=== PATIENT | female | born 1990 | race Caucasian/White ===

== ENCOUNTER 2020-10-23 13:13 | Inpatient (IN) | payer MEDICAID, SELFPAY ==
[2020-10-23 13:23] VITALS: BP 134/91; PULSE 113; RESP 16; TEMP 36.8; O2SAT 98; BMI 24.2
--- NOTE | 2020-10-23 13:23 | ECG_ITS ---
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 Measurements Intervals [place] Rate: 103 P: 49 MA: 131 QRS: 52 QRSD: 79 T: 46 QT: 338 QTc: 443 Interpretive Statements SINUS TACHYCARDIA No previous ECG available for comparison Electronically Signed On 10-23-2020 17:05:36 CDT by Sumeet Andino M.D. [id number]
--- NOTE | 2020-10-23 13:28 | ED_ITS ---
HPI - General Adult General: Chief complaint: Psychiatric Symptoms Stated complaint: 96 HR HOLD Time Seen by Provider: 10/23/20 13:23 History of Present Illness: HPI narrative: This patient is a 30-year-old female who presents via [facility] out of [facility]. For a 96-hour hold. Affidavit for the 96-hour hold states that approximately 9:00 this morning Mrs. Milan was given a courtesy ride from a local [facility] park in [place] to the [facility] behavior Police Department the officer in question advised that Ms. Schulz was [place] [facility] [place] with a [place] pole and Bober but had no hook officer also advised that the patient was talking about demons coming to take all of us to hell . While at the [facility] she continually seemed to be talking to people who are not there patient also seemed to have issues forming complete sentences when spoken to, often making sounds which cannot be understood. [facility] records affidavit states that the patient appeared to have some kind of mental issue or under the controlled substances. An affidavit was signed for the [facility] and the nutrition club ambassador signed off for the patient have a 96-hour hold. Patient was brought to this facility for this section. When asking the patient why she is in the emergency department today. Patient states she has an appointment with the doctor to evaluate for seizures. Patient has no memory and does not does not discuss the events of today. Patient states she has a history of drug abuse of taking crank but states nothing recent. Patient appears to be disheveled. Onset (ago): hour(s) Associated symptoms: Deny chest pain, dyspnea, headache(s), nausea, rash, palpitations or vomiting Review of Systems General: Reports: 10 or more systems reviewed and unremarkable except in HPI and below Const: Denies: fever(s), chills, body aches or fatigue Eyes: Denies: change in vision or blurry vision ENMT: Denies: throat pain, hoarseness or mouth pain Card: Denies: chest pain, palpitations, irregular heart rhythm, edema, swelling of feet/ankles or lightheadedness Resp: Denies: dyspnea, productive cough, non-productive cough, wheezing or pain on inspiration GI: Denies: abdominal pain, nausea or vomiting : Denies: flank pain, difficulty voiding, dysuria, urinary frequency, urinary urgency or urinary hesitancy Musc: Denies: neck pain, back pain, extremity pain, extremity swelling, joint pain, joint swelling, joint redness, joint warmth or limited range of motion Skin/Breast: Denies: rash, pruritus, erythema or skin tenderness Neuro: Denies: headache(s), numbness in extremities or weakness in extremities Psych: Reports: visual hallucinations and auditory hallucinations; Denies: anxiety or depression Physical Exam Const: COMMON NORMALS: no acute distress, average body habitus, patient oriented x3, no limitations, healthy appearing, alert and well nourished HENMT: COMMON NORMALS: normocephalic, atraumatic, hearing grossly normal bilaterally, external ears normal, EAC's normal, TM's normal bilaterally, Normal external nose present, Normal nasal mucous membranes and turbinates present, moist oral mucous membranes, oropharynx normal, dentition normal and gingiva normal HEAD & SCALP: normocephalic and atraumatic NOSE: Normal external nose present and Normal nasal mucous membranes and turbinates present EXTERNAL EAR: Yes external ears normal EXTERNAL AUDITORY CANAL: EAC's normal TYMPANIC MEMBRANE: TM's normal bilaterally Neck/C-Spine: COMMON NORMALS: full ROM, no lymphadenopathy, supple, no meningeal signs, no JVD, Thyroid normal and No carotid bruits THYROID: Thyroi d normal Chest: COMMONS NORMALS: normal inspection of the chest, normal palpation of entire chest wall, normal inspection of the breasts and normal palpation of the breasts Breast/axilla inspection: Yes normal inspection of the breasts BREAST/AXILLA PALPATION: Yes normal palpation of the breasts Resp: COMMON NORMALS: normal respiratory effort, No retractions, No use of accessory muscles, clear to auscultation bilaterally and percussion normal AUSCULTATION: clear to auscultation bilaterally PERCUSSION: percussion normal Cardio: COMMON NORMALS: no JVD, regular rate, regular rhythm, S1 normal heart sound present, S2 normal heart sound present, No gallops present (Cardio), No c licks present (Cardio), No murmurs present (Cardio), No rub (Cardio) and Peripheral pulses 2+ throughout RATE: regular rate RHYTHM: regular rhythm HEART SOUNDS: S1 normal heart sound present and S2 normal heart sound present PERIPHERAL PULSES: Peripheral pulses 2+ throughout GI: COMMON NORMALS: Normal to inspection, nondistended, normoactive bowel sounds present, Soft to palpation, non-tender, No hepatosplenomegaly present, no masses and no bruits PALPATION: Yes Soft to palpation and Yes No hepatosplenomegaly present : COMMON NORMALS: Yes no CVA tenderness BLADDER/KIDNEY EXAM: Yes no CVA tenderness Back/Pelvis: COMMON NORMALS: no CVA tenderness, thoracic and lumbar spine normal to inspection, no thoracic nor lumbar tenderness, thoraco-lumbar ROM normal and straight leg raise negative bilaterally Extremity: COMMON NORMALS: normal to inspection, full ROM, capillary refill normal, no joint enlargement, no clubbing, cyanosis or edema, no calf tenderness and no pedal edema Neuro: COMMON NORMALS: patient oriented x3 SENSORIUM/ORIENTATION: Yes alert MENINGEAL SIGNS: Yes no meningeal signs Psych: COMMON NORMALS: cooperative APPEARANCE: Yes unkempt, Yes disheveled and Yes bizarre ATTITUDE: Yes calm THOUGHT PROCESS: Flight of ideas present THOUGHT CONTENT: Yes delusions Course Consultations: Consultation #1: I did discuss at length with Dr. Baer who is accepted the patient for admission to the psychological unit. Time: 14:39 Vital Signs: Vital signs: Vital Signs Temperature 98.2 F 10/23/20 13:23 Pulse Rate 112 H 10/23/20 13:30 Respiratory Rate 18 10/23/20 13:30 Blood Pressure 134/91 10/23/20 13:30 Pulse Oximetry 100 10/23/20 13:30 MDM - General Adult MDM Narrative: Medical decision making narrative: This patient is a 30-year-old female who presents via [facility] out of [facility]. For a 96-hour hold. Affidavit for the 96-hour hold states that approximately 9:00 this morning Mrs. Milan was given a courtesy ride from a local [facility] park in [place] to the [facility] behavior Police Department the officer in question advised that Ms. Schulz was fishing [place] [facility] [place] with a fishing pole and Bober but had no hook officer also advised that the patient was talking about demons coming to take all of us to hell . While at the [facility] she continually seemed to be talking to people who are not there patient also seemed to have issues forming complete sentences when spoken to, often making sounds which cannot be un derstood. [facility] records affidavit states that the patient appeared to have some kind of mental issue or under the controlled substances. An affidavit was signed for the court house and the nutrition club ambassador signed off for the patient have a 96- hour hold. Patient was brought to this facility for this section. When asking the patient why she is in the emergency department today. Patient states she has an appointment with the doctor to evaluate for seizures. Patient has no memory and does not does not discuss the events of today. Patient states she has a history of drug abuse of taking crank but states nothing recent. Patient appears to be disheveled. I did discuss at length with Dr. Baer who is accepted the patient for admission to the psychological unit. Lab Data: Labs: Lab Results 10/23/20 10/23/20 10/23/20 Range/Units 13:41 13:41 13:41 WBC Corrected WBC RBC Hgb Hct MCV MCH MCHC RDW Plt Count MPV Gran % Neut % (Auto) Lymph % (Auto) [place] % (Auto) Eos % (Auto) Baso % (Auto) Neut # (Auto) Lymph # (Auto) [place] # (Auto) Eos # (Auto) Baso # (Auto) Absolute Gran (aut o) Nucleated RBC % (a uto) Nucleated RBCs # HCG, Qual Negative (Negative) Urine Color Yellow (Yellow) Urine Appearance Hazy A (CLEAR) Urine pH 6 (5-7) Ur Specific Gravit y 1.020 (1.005-1.030) Urine Protein Neg (Negative) Urine Glucose (UA) Norm (Normal) Urine Ketones Negative (Negative) Urine Blood Neg (Negative) Urine Nitrate Negative (Negative) Urine Bilirubin Neg (Negative) Urine Urobilinogen Norm (Negative) mg/dL Ur Leukocyte Edwige ase Trace H (Negative) Urine RBC None (0-2) /hpf Urine WBC 0-4 H (0-5) /hpf Ur Squamous Epith Cells 15-25 H (0-5) /hpf Amorphous Sediment Not Reportable Urine Bacteria 1+ H (NONE) /hpf Urine Opiates Scre en Negative (Negative) ng/mL Ur Barbiturates Sc reen Negative (Negative) ng/mL Ur Phencyclidine S crn Negative (Negative) ng/mL Ur Amphetamines Sc reen Positive H (Negative) ng/mL U Benzodiazepines Scrn Negative (Negative) ng/mL Urine Cocaine Scre en Negative (Negative) ng/mL U Marijuana (THC) Screen Positive H (Negative) ng/mL 10/23/20 Range/Units 13:42 WBC Cancelled Corrected WBC Cancelled RBC Cancelled Hgb Cancelled Hct Cancelled MCV Cancelled MCH Cancelled MCHC Cancelled RDW Cancelled Plt Count Cancelled MPV Cancelled Gran % Cancelled Neut % (Auto) Cancelled Lymph % (Auto) Cancelled [place] % (Auto) Cancelled Eos % (Auto) Cancelled Baso % (Auto) Cancelled Neut # (Auto) Cancelled Lymph # (Auto) Cancelled [place] # (Auto) Cancelled Eos # (Auto) Cancelled Baso # (Auto) Cancelled Absolute Gran (aut o) Cancelled Nucleated RBC % (a uto) Cancelled Nucleated RBCs # Cancelled HCG, Qual (Negative) Urine Color (Yellow) Urine Appearance (CLEAR) Urine pH (5-7) Ur Specific Gravit y (1.005-1.030) Urine Protein (Negative) Urine Glucose (UA) (Normal) Urine Ketones (Negative) Urine Blood (Negative) Urine Nitrate (Negative) Urine Bilirubin (Negative) Urine Urobilinogen (Negative) mg/dL Ur Leukocyte Edwige ase (Negative) Urine RBC (0-2) /hpf Urine WBC (0-5) /hpf Ur Squamous Epith Cells (0-5) /hpf Amorphous Sediment Urine Bacteria (NONE) /hpf Urine Opiates Scre en (Negative) ng/mL Ur Barbiturates Sc reen (Negative) ng/mL Ur Phencyclidine S crn (Negative) ng/mL Ur Amphetamines Sc reen (Negative) ng/mL U Benzodiazepines Scrn (Negative) ng/mL Urine Cocaine Scre en (Negative) ng/mL U Marijuana (THC) Screen (Negative) ng/mL EKG Data^: EKG 1: Attestation: I personally reviewed and interpreted this EKG as follows: EKG interpretation date: 10/23/20 EKG interpretation time: 14:13 Prior EKG tracings: not available for review Interpretation: Sinus tachycardia heart rate 103 nonspecific EKG Discharge Plan Discharge Patient Disposition: Admitted As Inpatient Clinical Impression: Acute psychosis, Drug-induced psychotic disorder, Methamphetamine use Condition: Stable Coding Level of Care Code ED Embalmer Apprentice for Chg Fwd Exam Comprehensive
[2020-10-23 13:30] VITALS: BP 134/91; PULSE 112; RESP 18; O2SAT 100
[2020-10-23 14:04] LABS: HCG Qualitative Urine. Negative (Negative)
[2020-10-23 14:05] LABS: Bilirubin Urine Neg (Negative); Blood Urine Neg (Negative); Glucose Urine UA Norm (Normal); Ketones Urine Negative (Negative); Nitrate Urine Negative (Negative); Protein Urine Neg (Negative); Urine Appearance Hazy (CLEAR); Urine Color Yellow (Yellow); Urobilinogen Urine Norm (Negative); pH Urine 6 (5-7)
[2020-10-23 14:06] LABS: Add Urine Microscopic? YES; Leukocyte Esterase Urine Trace (Negative)
[2020-10-23 14:10] LABS: Amphetamines Screen Urine Positive (Negative); Barbiturates Screen Urine Negative (Negative); Benzodiazepines Screen Urine Negative (Negative); Cocaine Screen Urine Negative (Negative); Opiate Screen Urine Negative (Negative); PCP Screen Urine Negative (Negative); THC Screen Urine Positive (Negative)
[2020-10-23 14:13] LABS: Add Urine Culture? No; Bacteria Urine 1+ /hpf; Squamous Epithelial Cell Urine 15-25 /hpf (0-5); WBC Urine 0-4 /hpf (0-5)
--- NOTE | 2020-10-23 14:40 | PC.NURSE ---
Lab at bedside to redraw blood
[2020-10-23 14:52] LABS: Basophils # 0.1 10^3/uL (0.0-0.1); Basophils % 0.6 %; Eosinophils % 0.4 %; Hematocrit 39.8 % (37.0-47.0); Hemoglobin 13.4 g/dL (11.5-15.3); Lymphocytes # 2.6 10^3/uL (0.8-4.8); Lymphocytes % 31.2 %; Mean Corpuscular HGB Conc 33.7 g/dL (30.0-36.0); Mean Corpuscular Hemoglobin 29.9 pg (28.0-34.0); Mean Corpuscular Volume 88.8 fL (81-99); Mean Platelet Volume 10.8 fL (7.4-10.4); Monocytes # 1.1 10^3/uL (0.2-0.9); Monocytes % 12.8 %; Neutrophils # 4.58 10^3/uL (1.8-7.7); Neutrophils % 54.8 %; Nucleated Red Blood Cells % 0 %; Platelet Count 390 10^3/cmm (130-400); Red Blood Count 4.48 10^6/uL (4.1-5.3); Red Cell Distribution Width 13.9 % (12.1-15.1); White Blood Count 8.4 10^3/uL (4.0-10.0)
[2020-10-23 15:17] LABS: Alanine Aminotransferase 24 U/L (0-33); Albumin Level 4.8 g/dL (3.5-5.2); Alkaline Phosphatase 84 IU/L (35-105); Anion Gap 16.9 (5-19); Aspartate Amino Transferase 79 U/L (0-32); Blood Urea Nitrogen 13 mg/dL (6-20); Calcium 9.1 mg/dL (8.5-10.5); Carbon Dioxide 26 mmol/L (22-29); Chloride 99 mmol/L (98-107); Globulin 3.2 g/dL (1.3-4.6); Glomerular Filtration Rate 117.4 mL/min (90-130); Glucose 100 mg/dL (65-115); Osmolality Calculated 286 mOsm/kg (285-295); Potassium 3.9 mmol/L (3.5-5.1); Sodium 138 mmol/L (136-145); Total Bilirubin 0.3 mg/dL (0.15-1.2)
[2020-10-23 15:20] LABS: Acetaminophen < 5.0 ug/mL (10-30); Alcohol Level < 10 mg/dL (0-10); Salicylate < 0.3 mg/dL (3-10)
[2020-10-23 15:33] VITALS: BP 134/90; PULSE 113; RESP 18; O2SAT 100
[2020-10-23 16:07] VITALS: RESP 18
[2020-10-23] MEDS: nicotine 2 mg Gum BUCCAL ×2 (17:16→21:25)
[2020-10-23 20:26] VITALS: BP 122/67; PULSE 88; RESP 18; TEMP 36.4; O2SAT 98
[2020-10-23] MEDS: trazodone 50 mg Tablet PO (21:21)
[2020-10-23] MEDS: OLANZapine 5 mg ODT PO (21:21)
--- NOTE | 2020-10-23 21:34 | PC.NURSE ---
PRN Zyprex Patient talking to self, and tearing up tissues PRN trazodone Patient requesting something to help her sleep.
--- NOTE | 2020-10-23 21:36 | PC.NURSE ---
PRN Nicotine gum Patient requested to ease her cravings.
--- NOTE | 2020-10-23 21:43 | PC.NURSE ---
PM Assessment Heart/Lung sounds WNL, Pt denies SI/HI, Denies pain, Denies AH/VH, However, nurse witnessed pt picking at blanket, talking, giggling, hopping up and down, in her room interacting with unseen stimuli. Pt is cooperative with staff, gave nurse several alias' to use, she could not accurately tell nurse her on assessment. Pt interacts well with other patients. She appears anxious but denies this to staff. Med nurse notified of pt actions
[2020-10-24 06:00] VITALS: BP 88/60; PULSE 68; RESP 18; TEMP 36.9; O2SAT 96
[2020-10-24] MEDS: OLANZapine 5 mg TABLET PO ×2 (09:43→18:40)
--- NOTE | 2020-10-24 09:45 | PM.NHP ---
Providers/Chief Complaint Admitting Physician: Sam Baer DO Chief Complaint: 96 HR HOLD HPI NPU History of Present Illness Janeen Milan is a 30 year old female with an unclear past psychiatric history presented to the emergency department by police after being found acting bizarrely on the road side with a fishing pole. Patient has a history of substance abuse with crank with reported last use a couple weeks ago but appears to have some sort of motor and vocal tic which is unclear if it is related to substance abuse versus baseline. Patient is somewhat confused but states that she is from [place] away near [place] and states that she has 2 previous psychiatric admissions for unclear reasons and states that she was taking Depakote, doxepin and risperidone which she reports was prescribed by her primary care but had stopped taking these medications several days ago. Patient denies any past or recent manic or hypomanic episodes. She denies any past or recent visual hallucinations but reports having intermittent auditory hallucinations if it is really quiet and I am able to focus on my thoughts. She denies any paranoia and denies any other delusions. Patient states that in the past she has been diagnosed as being depressed but denies any current depressive symptoms. She does report intermittent anxiety symptoms. Patient states that she lives on her own near [place] and states that she has 5 children but only has 4 them but then subsequently states that the children live with their fathers. Review of Systems General: Reports: 10 or more systems reviewed and unremarkable except in HPI and below Meds NPU Home Medications Medication Instructions Recorded Confirmed Last Taken Type divalproex 500 mg PO DAILY 10/23/20 10/23/20 Unknown History doxepin 50 mg PO DAILY 10/23/20 10/23/20 Unknown History risperidone 2 mg PO DAILY 10/23/20 10/23/20 Unknown History Allergies Allergy/AdvReac Type Severity Reaction Status Date / Time No Known Allergies Allergy Verified 10/23/20 13:29 [facility] NPU Other Psychiatric History: Other Psychiatric History: Per above, patient has unclear past psychiatric history, denies any outpatient treatment by psychiatrist and states that her medication was prescribed by her primary care Reports 2 previous psychiatric admissions for unclear reasons Denies any history of suicide attempt or self harm behavior Mental Status Exam MSE Comments: Sitting in the day room, occasional involuntary motor tics with her head and arms as well as vocal tics, poor dentition, poor and rough complexion, disheveled hair, polite and cooperative, good eye contact Psychomotor activity per above, neither increased or decreased, no agitation Speech is fair articulation, spontaneous, normal rate and volume, not pressured I feel okay, full range of affect, not labile Alert and oriented to person, place, time, appears to be somewhat confused about situation and circumstances leading to hospitalization Intellectual functioning is unclear, appears to be below average to average at best based on vocabulary, interview Memory and concentration appear to be fair per interview Thought process, linear, no flight of ideas, no looseness of associations Thought content, no delusions, does not appear to be attending to any internal stimuli, no suicidal or homicidal ideation Insight and judgment appear to be fair to intact Vitals/I&O/Wt Last Vital Signs Temp 98.5 F 10/24/20 06:00 Pulse 68 10/24/20 06:00 Resp 18 10/24/20 06:00 BP 88/60 10/24/20 06:00 Pulse Ox 96 10/24/20 06:00 Weight last 48 hrs Weight 68.039 kg Data NPU : 10/23/20 14:41 10/23/20 14:41 A&P Assessment and plan (1) Acute psychosis: Status: Acute (2) Drug-induced psychotic disorder: Status: Acute (3) Methamphetamine use: Status: Acute Additional A&P Information Patient with unclear past psychiatric history, picked up by police for bizarre behavior, has a history of substance abuse with unclear motor and vocal tics, denies any current mood symptoms, denies any suicidal ideation. Patient would benefit from medication stabilization and coordination for post discharge mental health care follow-up. INVOLUNTARY ADMIT to inpatient psychiatry START olanzapine 5 mg by mouth twice daily targeting psychotic symptoms Encouraged patient to participate in unit activities to include group sessions, unit milieu Coordinate with social security specialist for post discharge mental health care follow-up Attestations NPU Medical Necessity Statement*: Psychiatric hospitalization is indicated for medication stabilization, coordination for safe discharge Anticipate hospital stay to exceed 2 midnights Time Spent in Patient Care: Greater than 35 minutes (>than 50% of time spent in counselling and/or direct pt care on unit). Coding Level of Care Code Acute Exploration Driller for Stephen Smith Diagnoses Acute psychosis F23 Drug-induced psychotic disorder F19.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
[2020-10-24] MEDS: hyDROXYzine 25 mg Capsule 50 MG PO (11:00)
--- NOTE | 2020-10-24 11:02 | PC.NURSE ---
PRN 1100 Administered Vistaril 50 mg for pt c/o anxiety, will follow up with pt.
[2020-10-24 14:00] VITALS: BP 91/58; PULSE 65; RESP 18; TEMP 36.8; O2SAT 99
[2020-10-24 21:28] VITALS: BP 97/54; PULSE 74; RESP 16; TEMP 37.1; O2SAT 97
[2020-10-25 06:00] VITALS: BP 99/58; PULSE 64; RESP 16; TEMP 37; O2SAT 98
[2020-10-25] MEDS: OLANZapine 5 mg TABLET PO ×2 (08:58→17:18)
--- NOTE | 2020-10-25 13:07 | P.PN_ITS ---
Subjective NPU Subjective: Interval history: Patient currently denying any auditory or visual destinations Denies any mood symptoms, denies any depressed symptoms, denies any suicidal ideations Patient reports some confusion about circumstances leading to her hospitalization but states that she remembers being picked up by the police Reports being compliant with her medication, denies any medication side effects Per staff report, no interval behavioral disturbances Mental Status Exam MSE Comments: Lying in bed, no noticeable tics today, appropriately dressed in hospital scrubs but tired appearing and disheveled, fair eye contact Psychomotor activity is somewhat decreased, no agitation Speech is fair articulation, spontaneous, normal rate and volume, not pressured I feel tired, full range of affect, not labile Alert and oriented to person, place, time, appears to be somewhat confused about situation and circumstances leading to hospitalization Memory and concentration appear to be fair per interview Thought process, linear, no flight of ideas, no looseness of associations Thought content, no delusions, does not appear to be attending to any internal stimuli, no suicidal or homicidal ideation Insight and judgment appear to be fair to intact Vitals/I&O/Wt Last Vital Signs Temp 98.6 F 10/25/20 06:00 Pulse 64 10/25/20 06:00 Resp 16 10/25/20 06:00 BP 99/58 10/25/20 06:00 Pulse Ox 98 10/25/20 06:00 Weight last 48 hrs Weight 68.039 kg Data NPU : 10/23/20 14:41 10/23/20 14:41 A&P Assessment and plan (1) Acute psychosis: Status: Acute (2) Methamphetamine use: Status: Acute Additional A&P Information No noticeable motor tics today, reports feeling confused CONTINUE current medication, continue to monitor Attestations NPU Medical Necessity Statement*: Continues to require psychiatric hospitalization for medication stabilization Coding Level of Care Code Acute Africana Studies Professor for Stephen Smith Diagnoses Acute psychosis F23 Methamphetamine use F15.10
[2020-10-25 14:00] VITALS: BP 89/61; PULSE 84; RESP 17; TEMP 36.7; O2SAT 98
[2020-10-25 21:33] VITALS: RESP 17
--- NOTE | 2020-10-25 21:33 | PC.NURSE ---
Patient refused vital signs. Respirations were taken.
[2020-10-26 06:00] VITALS: BP 90/75; PULSE 111; RESP 17; TEMP 36.3; O2SAT 93
[2020-10-26] MEDS: OLANZapine 5 mg TABLET PO (08:49)
--- NOTE | 2020-10-26 12:00 | P.PN_ITS ---
Subjective NPU Subjective: Interval history: Patient is lying in bed, reports that she feels groggy, denies any interval mood symptoms, denies any depressed symptoms, denies any suicidal ideation Denies any auditory or visual destinations, denies any delusions Patient reports that she feels like she is thinking more clearly although is somewhat hazy about events leading to her hospitalization She reports that her appetite is good, reports sleeping well Per staff report, no interval behavioral disturbances Mental Status Exam MSE Comments: Appropriately dressed in hospital scrubs, lying in bed, tired appearing and disheveled, fair eye contact Psychomotor activity is somewhat decreased, no agitation Speech is fair articulation, spontaneous, normal rate and volume, not pressured I feel groggy, full range of affect, not labile Alert and oriented to person, place, time, appears to be somewhat confused about situation and circumstances leading to hospitalization Memory and concentration appear to be fair per interview Thought process, linear, no flight of ideas, no looseness of associations Thought content, no delusions, does not appear to be attending to any internal stimuli, no suicidal or homicidal ideation Insight and judgment appear to be fair to intact Vitals/I&O/Wt Last Vital Signs Temp 97.3 F L 10/26/20 06:00 Pulse 111 H 10/26/20 06:00 Resp 17 10/26/20 06:00 BP 90/75 10/26/20 06:00 Pulse Ox 93 10/26/20 06:00 Data NPU : 10/23/20 14:41 10/23/20 14:41 A&P Assessment and plan (1) Acute psychosis: Status: Acute (2) Methamphetamine use: Status: Acute Additional A&P Information Patient reports feeling like her thoughts are more organized, denies any interval auditory or visual destinations, no stated delusions CHANGE olanzapine to olanzapine 10 mg at bedtime targeting mood, psychotic symptoms Attestations NPU Medical Necessity Statement*: Continues to require psychiatric hospitalization for medication stabilization Coding Level of Care Code Acute Permit Coordinator for Stephen Smith Diagnoses Acute psychosis F23 Methamphetamine use F15.10
[2020-10-26 14:00] VITALS: BP 100/66; PULSE 79; RESP 16; TEMP 36.2; O2SAT 97
[2020-10-26] MEDS: hyDROXYzine 25 mg Capsule 50 MG PO (15:45)
[2020-10-26] MEDS: OLANZapine 5 mg TABLET 10 MG PO (21:57)
[2020-10-26 22:00] VITALS: BP 94/61; PULSE 71; RESP 15; TEMP 36.3; O2SAT 95
[2020-10-27 06:00] VITALS: BP 98/64; PULSE 70; RESP 15; TEMP 36.6; O2SAT 95
--- NOTE | 2020-10-27 13:06 | P.PN_ITS ---
Subjective NPU Subjective: Interval history: Denies any interval auditory or visual hallucinations, no stated delusions Patient reports that she is thinking more clearly but continues to struggle with some of the events leading to her hospitalization although recalls with some prompting. Denies any interval depressive symptoms, no suicidal ideation Patient reports that her sleep has improved, feels somewhat groggy in the morning Mental Status Exam MSE Comments: Lying in bed, tired appearing and disheveled, good eye contact Psychomotor activity is somewhat decreased, no agitation Speech is fair articulation, spontaneous, normal rate and volume, not pressured I feel a little better, full range of affect, not labile Alert and oriented to person, place, time, appears to be somewhat confused about situation and circumstances leading to hospitalization Memory and concentration appear to be fair per interview Thought process, linear, no flight of ideas, no looseness of associations Thought content, no delusions, does not appear to be attending to any internal stimuli, no suicidal or homicidal ideation Insight and judgment appear to be fair to intact Vitals/I&O/Wt Last Vital Signs Temp 97.8 F 10/27/20 06:00 Pulse 70 10/27/20 06:00 Resp 15 10/27/20 06:00 BP 98/64 10/27/20 06:00 Pulse Ox 95 10/27/20 06:00 Data NPU : 10/23/20 14:41 10/23/20 14:41 A&P Assessment and plan (1) Acute psychosis: Status: Acute (2) Drug-induced psychotic disorder: Status: Acute (3) Methamphetamine use: Status: Acute Additional A&P Information Appears to be more organized, thinking more clearly, denies any interval suicidal ideations, denying any hallucinations DECREASE to olanzapine 5 mg at bedtime Continue to monitor Attestations NPU Medical Necessity Statement*: Continues to require psychiatric hospitalization for medication stabilization Coding Level of Care Code Acute Lockstitch Zipper Setter for Stephen Smith Diagnoses Acute psychosis F23 Drug-induced psychotic disorder F19.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
[2020-10-27 14:00] VITALS: BP 98/64; PULSE 70; RESP 15; TEMP 36.6; O2SAT 95
[2020-10-27] MEDS: hyDROXYzine 25 mg Capsule 50 MG PO (15:56)
[2020-10-27 15:59] VITALS: BP 103/69; PULSE 97; RESP 18; TEMP 36.2; O2SAT 94
[2020-10-27] MEDS: nicotine 2 mg Gum BUCCAL (16:53)
[2020-10-27 19:46] VITALS: BP 94/59; PULSE 70; RESP 16; TEMP 36.7; O2SAT 97
[2020-10-27] MEDS: OLANZapine 5 mg TABLET PO (21:19)
[2020-10-28 06:00] VITALS: BP 96/52; PULSE 76; RESP 17; TEMP 36.3; O2SAT 97
--- NOTE | 2020-10-28 12:15 | P.PN_ITS ---
Subjective NPU Subjective: Interval history: Continues to deny any interval psychotic symptoms, no auditory visual loose Nations, no delusions Reports intermittent mood symptoms but denies any sustained depressive symptoms, no suicidal ideation Continues to report some grogginess but states improved Reports that her sleep has been improved States that she has been compliant with medication and denies any medication side effects Mental Status Exam MSE Comments: Lying in bed, eventually sits up for interview, disheveled, unkempt but cooperative with interview and good eye contact Psychomotor activity is somewhat decreased, no agitation Speech is fair articulation, spontaneous, normal rate and volume, not pressured I feel okay, full range of affect, not labile Alert and oriented to person, place, time, appears to be somewhat confused about situation and circumstances leading to hospitalization Memory and concentration appear to be fair per interview Thought process, linear, no flight of ideas, no looseness of associations Thought content, no delusions, does not appear to be attending to any internal stimuli, no suicidal or homicidal ideation Insight and judgment appear to be fair to intact Vitals/I&O/Wt Last Vital Signs Temp 97.4 F L 10/28/20 06:00 Pulse 76 10/28/20 06:00 Resp 17 10/28/20 06:00 BP 96/52 10/28/20 06:00 Pulse Ox 97 10/28/20 06:00 Weight last 48 hrs Weight 68.039 kg Data NPU : 10/23/20 14:41 10/23/20 14:41 A&P Assessment and plan (1) Acute psychosis: Status: Acute (2) Drug-induced psychotic disorder: Status: Acute (3) Methamphetamine use: Status: Acute Additional A&P Information Continues to report improvement, improving psychotic symptoms Continue current medication, continue to monitor Attestations NPU Medical Necessity Statement*: Continues to require psychiatric hospitalization for medication stabilization, coordination for safe discharge Coding Level of Care Code Acute Maintenance And Custodian Supervisor for Stephen Smith Diagnoses Acute psychosis F23 Drug-induced psychotic disorder F19.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
[2020-10-28] MEDS: nicotine 2 mg Gum BUCCAL ×2 (13:29→16:12)
[2020-10-28 13:46] VITALS: BP 108/61; PULSE 80; RESP 18; TEMP 36.4; O2SAT 96
[2020-10-28] MEDS: hyDROXYzine 25 mg Capsule 50 MG PO (14:09)
--- NOTE | 2020-10-28 14:09 | PC.NURSE ---
Addendum entered by Marlene Piper RN 10/28/20 14:26: Patient currently resting in bed. Original Note: Patient requested something for anxiety. Vistaril given
[2020-10-28] MEDS: trazodone 50 mg Tablet PO (20:33)
[2020-10-28] MEDS: OLANZapine 5 mg TABLET PO (20:33)
[2020-10-28 20:56] VITALS: BP 99/64; PULSE 22; RESP 22; TEMP 37.4; O2SAT 98
--- NOTE | 2020-10-28 22:55 | PC.NURSE ---
at 2038, pt requested a sleeping pill with HS meds, trazodone 50mg po given. pt resting quietly with both eyes closed at this time.
[2020-10-29 06:00] VITALS: BP 99/60; PULSE 77; RESP 20; TEMP 36.8; O2SAT 97
[2020-10-29 08:56] VITALS: BMI 24.2
--- NOTE | 2020-10-29 09:07 | PC.NURSE ---
DISCHARGE CONTACT INFO MARGARET @ [phone] HE SAID HE WILL PICK PT UP IF DISCHARGED
[2020-10-29] MEDS: nicotine 2 mg Gum BUCCAL (09:22)
--- NOTE | 2020-10-29 11:52 | P.DS_ITS ---
Diagnoses at Discharge Discharge Diagnosis (1) Acute psychosis: Status: Acute (2) Drug-induced psychotic disorder: Status: Acute (3) Methamphetamine use: Status: Acute Reason for Visit Reason for Visit: 96 HR HOLD Hospital Course Hospital Course 30 year old female with an unclear past psychiatric history presented to the emergency department by police after being found acting bizarrely on the road side with a fishing pole. Patient has a history of substance abuse with crank with reported last use a couple weeks ago but appears to have some sort of motor and vocal tic which is unclear if it is related to substance abuse versus baseline. Patient continued to have some jerking movements related to her methamphetamine intoxication which rapidly resolved over the first 24 hours with no return. Patient was reporting some dysphoria which also resolved. Patient was started on olanzapine which was titrated up to 5 mg twice daily and subsequently tapered back down to 5 mg at bedtime which the patient tolerated well with no reports of any medication side effects. Patient became more interactive on the unit and participated in unit milieu with no reports of any behavioral disturbances. Patient was not suicidal and did not demonstrate any bizarre behavior or endorse any psychotic symptoms at the time of discharge and did not appear to pose an imminent threat of harm to self or others. Low to moderate risk of harm to self or others given no current psychotic sympt oms although patient's risk may be elevated if she continues to abuse substances or alcohol leading to impulsive, unexpected behavior. Risk mitigation included psychiatric hospitalization for medication stabilization and observation for any persisting bizarre behavior, recommendation to abstain from the use of any substances and alcohol as well as the need for compliance with her medication, medication management and substance counseling/treatment follow-up. Patient was able to communicate her understanding of the need to abstain from use of substances and alcohol as well as the need for compliance with post discharge substance counseling/treatment in order to further mitigate her risk of harm to self and others. Mental Status Exam MSE Comments: Standing at the nurses station, calm, cooperative, interactive, polite, good eye contact Psychomotor activity is somewhat decreased, no agitation Speech is fair articulation, spontaneous, normal rate and volume, not pressured I feel good, full range of affect, smiles appropriately at times, not labile Alert and oriented to person, place, time, situation Memory and concentration appear to be fair per interview Thought process, linear, no flight of ideas, no looseness of associations Thought content, no delusions, does not appear to be attending to any internal stimuli, no suicidal or homicidal ideation Insight and judgment appear to be fair to intact Discharge Data Vitals: Last Vital Signs Temp 98.2 F 10/29/20 06:00 Pulse 77 10/29/20 06:00 Resp 20 H 10/29/20 06:00 BP 99/60 10/29/20 06:00 Pulse Ox 97 10/29/20 06:00 Discharge Plan Discharge Patient Disposition: Home Condition: Stable Prescriptions: New olanzapine 5 mg Tablet 5 mg PO BEDTIME Qty: 30 RF: 0 Discontinued doxepin 50 mg capsule 50 mg PO DAILY RF: 0 divalproex 500 mg tablet,delayed release (DR/EC) 500 mg PO DAILY RF: 0 risperidone 2 mg tablet 2 mg PO DAILY RF: 0 Discharge Orders: Discharge Order (Routine); Ordered 10/29/20 Ordered By: Sam Baer Referrals: [facility] [Other] (Once you Discharge from the hospital please call [phone] and they will set you up an appointment to be seen at [facility] ([place]) [Other] (Please Call [facility] next week to see if they have an open female bed available. If they do, you will need to use Medicaid Transport to get there. Here is the number for Medicaid transport . Please have the address and phone number to [facility] when you call as well as your current address. Please call transport at the earliest convienence as ther may need to be a two to three day wait for transport. Please inform [facility] of this. 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
[2020-10-29 11:59] VITALS: BP 99/60; PULSE 77; RESP 20; TEMP 36.8; O2SAT 97
== END 2020-10-29 12:58 | disposition home or self-care (01) | DRG 897 ==
LOC: ER 14:27 → NP 15:23
PROVIDERS: Admitting Provider Psychiatry & Neurology Psychiatry; Emergency Provider Emergency Medicine; Visit Provider Psychiatry & Neurology Psychiatry
DX: F15.959 Other stimulant use, unspecified with stimulant-induced psychotic disorder, unspecified (principal)
CPT/HCPCS: 80053; 80306; 80307; 81001; 81025; 85025; 93005; 99285

== ENCOUNTER 2020-12-07 11:12 | Inpatient (IN) | payer MEDICAID, SELFPAY ==
[2020-12-07 11:22] VITALS: BP 92/62; PULSE 71; RESP 16; O2SAT 97; BMI 30.7
--- NOTE | 2020-12-07 11:30 | W.ED.PSYCH ---
HPI - Psych General: Chief Complaint: Psychiatric Symptoms Stated Complaint: MHE Time Seen by Provider: 12/07/20 11:20 Source: patient and police Mode of arrival: ambulatory Limitations: altered mental status History of Present Illness: HPI Narrative: This is a 30-year-old female who was brought in by [facility]'s office and was brought in because that she was found wandering on the street and into traffic. When she was questioned by law enforcement she stated that she was born in the [birth year]99s and that this is somewhere in the 1800s and the president is Mihai Aguilera. When they looked at her identification she is about 20 miles away from home. Because of these and her mental status she was brought to the emergency department to be evaluated. When I spoke to her she was not making any sense, she was unable to answer any of my questions appropriately as her answers were no related to my questions. She is quite unkempt. MD complaint: altered mental status Treatments prior to arrival: placed on mental health hold Review of Systems General: Reports: ROS unobtainable due to mental status ON LICENSE OF [facility] ED Female Reproductive History: Date of last menstrual period: 09/15/20 Physical Exam Const: COMMON NORMALS: no acute distress, average body habitus, no limitations, alert and well nourished GENERAL APPEARANCE: disheveled HENMT: COMMON NORMALS: normocephalic, atraumatic and moist oral mucous membranes HEAD & SCALP: normocephalic and atraumatic Neck/C-Spine: COMMON NORMALS: no meningeal signs and no JVD Resp: COMMON NORMALS: normal respiratory effort, No retractions, No use of accessory muscles, clear to auscultation bilaterally and percussion normal AUSCULTATION: clear to auscultation bilaterally PERCUSSION: percussion normal Cardio: COMMON NORMALS: no JVD, regular rate, regular rhythm, S1 normal heart sound present, S2 normal heart sound present, No gallops present (Cardio), No clicks present (Cardio), No murmurs present (Cardio), No rub (Cardio) and Peripheral pulses 2+ throughout RATE: regular rate RHYTHM: regular rhythm HEART SOUNDS: S1 normal heart sound present and S2 normal heart sound present PERIPHERAL PULSES: Peripheral pulses 2+ throughout GI: COMMON NORMALS: Normal to inspection, nondistended, normoactive bowel sounds present, Soft to palpation, non-tender, No hepatosplenomegaly present, no masses and no bruits PALPATION: Yes Soft to palpation and Yes No hepatosplenomegaly present Extremity: COMMON NORMALS: normal to inspection, full ROM, capillary refill normal, no calf tenderness and no pedal edema Neuro: SENSORIUM/ORIENTATION: Yes alert MENINGEAL SIGNS: Yes no meningeal signs Psych: APPEARANCE: Yes unkempt ATTITUDE: Yes bizarre ACTIVITY/MOTOR BEHAVIOR: Yes disorganized behavior SPEECH: Yes incoherent MOOD & AFFECT: Yes elevated mood Skin: COMMON NORMALS: no rashes or lesions noted, no wounds, turgor normal, no jaundice, no petechiae and no mottling GENERAL SKIN EXAM: no rashes or lesions noted and turgor normal Course Consultations: Consultation #1: Discussed the patient with Dr. Stephens, psychiatrist and he kindly accepted the patient to his service. Time: 13:50 Vital Signs: Vital signs: Vital Signs Pulse Rate 69 12/07/20 14:00 Respiratory Rate 16 12/07/20 20:13 Blood Pressure 136/69 12/07/20 14:00 Pulse Oximetry 100 12/07/20 14:00 MDM - Psych MDM Narrative: Medical decision making narrative: 30-year-old female patient was brought in by law enforcement officers due to bizarre behavior. On evaluation by me the patient is clearly having an acute psychotic episode and drug screen was positive for methamphetamines and marijuana. She was placed on a 96-hour hold and admitted to the neuropsychiatric unit after she was medically cleared for further evaluation and management. Medical Records: Attestation: I reviewed the patient's medical records. Lab Data: Attestation: I reviewed the patient's lab results. Labs: Lab Results 12/07/20 12/07/20 12/07/20 Range/Units 12:10 12:10 12:40 WBC 6.0 (4.0-10.0) 10^3/ uL RBC 4.47 (4.1-5.3) 10^6/u L Hgb 13.2 (11.5-15.3) g/dL Hct 40.6 (37.0-47.0) % MCV 90.8 (81-99) fL MCH 29.5 (28.0-34.0) pg MCHC 32.5 (30.0-36.0) g/dL RDW 13.0 (12.1-15.1) % Plt Count 288 (130-400) 10^3/c mm MPV 11.2 H (7.4-10.4) fL Neut % (Auto) 43.1 % Lymph % (Auto) 38.8 % [place] % (Auto) 12.6 % Eos % (Auto) 4.3 % Baso % (Auto) 1.0 % Neut # (Auto) 2.59 (1.8-7.7) 10^3/u L Lymph # (Auto) 2.3 (0.8-4.8) 10^3/u L [place] # (Auto) 0.8 (0.2-0.9) 10^3/u L Eos # (Auto) 0.3 (0.0-0.8) 10^3/u L Baso # (Auto) 0.1 (0.0-0.1) 10^3/u L Nucleated RBC % (a uto) 0 % Nucleated RBCs # 0.0 /100WBC Sodium (136-145) mmol/L Potassium (3.5-5.1) mmol/L Chloride (98-107) mmol/L Carbon Dioxide (22-29) mmol/L Anion Gap (5-19) BUN (6-20) mg/dL Creatinine (0.5-0.9) mg/dL GFR Calculation (90-130) mL/min Glucose (65-115) mg/dL Calculated Osmolal ity (285-295) mOsm/k g Calcium (8.5-10.5) mg/dL Total Bilirubin (0.15-1.2) mg/dL AST (0-32) U/L ALT (0-33) U/L Alkaline Phosphata se (35-105) IU/L Total Protein (6.6-8.7) g/dL Albumin (3.5-5.2) g/dL Globulin (1.3-4.6) g/dL HCG, Qual (Negative) Urine Color Yellow (Yellow) Urine Appearance Hazy A (CLEAR) Urine pH 6 (5-7) Ur Specific Gravit y 1.015 (1.005-1.030) Urine Protein Neg (Negative) Urine Glucose (UA) Norm (Normal) Urine Ketones Negative (Negative) Urine Blood Neg (Negative) Urine Nitrate Negative (Negative) Urine Bilirubin 1+ H (Negative) Urine Urobilinogen 1 H (Negative) mg/dL Ur Leukocyte Edwige ase Negative (Negative) Urine RBC None (0-2) /hpf Urine WBC None (0-5) /hpf Ur Squamous Epith Cells 15-25 H (0-5) /hpf Calcium Oxalate Cr ystal 0-4 H /hpf Amorphous Sediment Not Reportable Urine Bacteria 1+ H (NONE) /hpf Salicylates (3-10) mg/dL Urine Opiates Scre en Negative (Negative) ng/mL Acetaminophen (10-30) ug/mL Ur Barbiturates Sc reen Negative (Negative) ng/mL Ur Phencyclidine S crn Negative (Negative) ng/mL Ur Amphetamines Sc reen Positive H (Negative) ng/mL U Benzodiazepines Scrn Negative (Negative) ng/mL Urine Cocaine Scre en Negative (Negative) ng/mL U Marijuana (THC) Screen Positive H (Negative) ng/mL Ethyl Alcohol (0-10) mg/dL 12/07/20 12/07/20 Range/Units 12:40 12:40 WBC (4.0-10.0) 10^3/ uL RBC (4.1-5.3) 10^6/u L Hgb (11.5-15.3) g/dL Hct (37.0-47.0) % MCV (81-99) fL MCH (28.0-34.0) pg MCHC (30.0-36.0) g/dL RDW (12.1-15.1) % Plt Count (130-400) 10^3/c mm MPV (7.4-10.4) fL Neut % (Auto) % Lymph % (Auto) % [place] % (Auto) % Eos % (Auto) % Baso % (Auto) % Neut # (Auto) (1.8-7.7) 10^3/u L Lymph # (Auto) (0.8-4.8) 10^3/u L [place] # (Auto) (0.2-0.9) 10^3/u L Eos # (Auto) (0.0-0.8) 10^3/u L Baso # (Auto) (0.0-0.1) 10^3/u L Nucleated RBC % (a uto) % Nucleated RBCs # /100WBC Sodium 139 (136-145) mmol/L Potassium 4.1 (3.5-5.1) mmol/L Chloride 102 (98-107) mmol/L Carbon Dioxide 26 (22-29) mmol/L Anion Gap 15.1 (5-19) BUN 10 (6-20) mg/dL Creatinine 0.7 (0.5-0.9) mg/dL GFR Calculation 98.3 (90-130) mL/min Glucose 91 (65-115) mg/dL Calculated Osmolal ity 287 (285-295) mOsm/k g Calcium 9.1 (8.5-10.5) mg/dL Total Bilirubin 0.2 (0.15-1.2) mg/dL AST 9 (0-32) U/L ALT 9 (0-33) U/L Alkaline Phosphata se 82 (35-105) IU/L Total Protein 6.4 L (6.6-8.7) g/dL Albumin 4.3 (3.5-5.2) g/dL Globulin 2.1 (1.3-4.6) g/dL HCG, Qual Negative (Negative) Urine Color (Yellow) Urine Appearance (CLEAR) Urine pH (5-7) Ur Specific Gravit y (1.005-1.030) Urine Protein (Negative) Urine Glucose (UA) (Normal) Urine Ketones (Negative) Urine Blood (Negative) Urine Nitrate (Negative) Urine Bilirubin (Negative) Urine Urobilinogen (Negative) mg/dL Ur Leukocyte Edwige ase (Negative) Urine RBC (0-2) /hpf Urine WBC (0-5) /hpf Ur Squamous Epith Cells (0-5) /hpf Calcium Oxalate Cr ystal /hpf Amorphous Sediment Urine Bacteria (NONE) /hpf Salicylates < 0.3 L (3-10) mg/dL Urine Opiates Scre en (Negative) ng/mL Acetaminophen < 5.0 L (10-30) ug/mL Ur Barbiturates Sc reen (Negative) ng/mL Ur Phencyclidine S crn (Negative) ng/mL Ur Amphetamines Sc reen (Negative) ng/mL U Benzodiazepines Scrn (Negative) ng/mL Urine Cocaine Scre en (Negative) ng/mL U Marijuana (THC) Screen (Negative) ng/mL Ethyl Alcohol < 10 (0-10) mg/dL Discharge Plan Discharge Patient Disposition: Admitted As Inpatient Admit Provider: Vinay Stephens Clinical Impression: Methamphetamine use Drug-induced psychotic disorder Qualifiers: Complication of substance-induced condition: with unspecified complication Qualified Code(s): F19.959 - Other psychoactive substance use, unspecified with psychoactive substance-induced psychotic disorder, unspecified Condition: Stable Coding Level of Care Code ED Epidemiology Investigator for Stephen Fwd Exam Comprehensive
[2020-12-07 11:35] VITALS: BP 92/62; PULSE 66; RESP 20; O2SAT 100
[2020-12-07 12:30] VITALS: RESP 18; O2SAT 100
[2020-12-07 12:44] LABS: Basophils # 0.1 10^3/uL (0.0-0.1); Eosinophils # 0.3 10^3/uL (0.0-0.8); Eosinophils % 4.3 %; Hematocrit 40.6 % (37.0-47.0); Hemoglobin 13.2 g/dL (11.5-15.3); Lymphocytes # 2.3 10^3/uL (0.8-4.8); Lymphocytes % 38.8 %; Mean Corpuscular HGB Conc 32.5 g/dL (30.0-36.0); Mean Corpuscular Hemoglobin 29.5 pg (28.0-34.0); Mean Corpuscular Volume 90.8 fL (81-99); Mean Platelet Volume 11.2 fL (7.4-10.4); Monocytes # 0.8 10^3/uL (0.2-0.9); Monocytes % 12.6 %; Neutrophils # 2.59 10^3/uL (1.8-7.7); Neutrophils % 43.1 %; Nucleated Red Blood Cells % 0 %; Platelet Count 288 10^3/cmm (130-400); Red Blood Count 4.47 10^6/uL (4.1-5.3)
[2020-12-07 12:46] LABS: HCG Qualitative Urine. Negative (Negative)
[2020-12-07 13:01] LABS: Alanine Aminotransferase 9 U/L (0-33); Albumin Level 4.3 g/dL (3.5-5.2); Alkaline Phosphatase 82 IU/L (35-105); Anion Gap 15.1 (5-19); Aspartate Amino Transferase 9 U/L (0-32); Blood Urea Nitrogen 10 mg/dL (6-20); Calcium 9.1 mg/dL (8.5-10.5); Carbon Dioxide 26 mmol/L (22-29); Chloride 102 mmol/L (98-107); Globulin 2.1 g/dL (1.3-4.6); Glomerular Filtration Rate 98.3 mL/min (90-130); Glucose 91 mg/dL (65-115); Osmolality Calculated 287 mOsm/kg (285-295); Potassium 4.1 mmol/L (3.5-5.1); Sodium 139 mmol/L (136-145); Total Bilirubin 0.2 mg/dL (0.15-1.2); Total Protein 6.4 g/dL (6.6-8.7)
[2020-12-07 13:13] LABS: Acetaminophen < 5.0 ug/mL (10-30); Alcohol Level < 10 mg/dL (0-10); Salicylate < 0.3 mg/dL (3-10)
[2020-12-07 13:33] LABS: Amphetamines Screen Urine Positive (Negative); Barbiturates Screen Urine Negative (Negative); Benzodiazepines Screen Urine Negative (Negative); Cocaine Screen Urine Negative (Negative); Opiate Screen Urine Negative (Negative); PCP Screen Urine Negative (Negative); THC Screen Urine Positive (Negative)
[2020-12-07 13:38] LABS: Add Urine Microscopic? YES; Bacteria Urine 1+ /hpf; Bilirubin Urine 1+ (Negative); Blood Urine Neg (Negative); Glucose Urine UA Norm (Normal); Ketones Urine Negative (Negative); Leukocyte Esterase Urine Negative (Negative); Nitrate Urine Negative (Negative); Protein Urine Neg (Negative); Specific Gravity, Urine 1.015 (1.005-1.030); Squamous Epithelial Cell Urine 15-25 /hpf (0-5); Urine Appearance Hazy (CLEAR); Urine Color Yellow (Yellow); Urobilinogen Urine 1 mg/dL (Negative); pH Urine 6 (5-7)
[2020-12-07 13:39] LABS: Add Urine Culture? No; Calcium Oxalate Crystals Urine 0-4 /hpf
[2020-12-07 14:00] VITALS: BP 136/69; PULSE 69; RESP 18; O2SAT 100
[2020-12-07] MEDS: OLANZapine 5 mg ODT PO (16:34)
--- NOTE | 2020-12-07 16:35 | PC.NURSE ---
Addendum entered by Linh Sevilla LPN 12/07/20 17:53: PRN MED SOMEWHAT EFFECTIVE, PT REPORTS FEELING SLEEPY Original Note: PRN ZYPREXA ZYDIS 5 MG GIVEN PO PER PSYCHOSIS. PT PACING UNIT, TALKING TO HERSELF, SMILING INAPPROPRIATELY. TOOK MED WITHOUT INCIDENT. WILL CONT TO MONITOR.
[2020-12-07 20:13] VITALS: RESP 16
[2020-12-07] MEDS: OLANZapine 5 mg TABLET PO (20:43)
[2020-12-08 06:00] VITALS: BP 71/46; PULSE 100; RESP 18; TEMP 36.5; O2SAT 97
--- NOTE | 2020-12-08 10:01 | P.HP_ITS ---
Providers/Chief Complaint Admitting Physician: Vinay Stephens MD Chief Complaint: MHE HPI NPU History of Present Illness Janeen Milan is a 30 year old female who presented to the emergency department with the following report: Chief Complaint: Psychiatric Symptoms Stated Complaint: MHE Time Seen by Provider: 12/07/20 11:20 Source: patient and police Mode of arrival: ambulatory Limitations: altered mental status History of Present Illness: HPI Narrative: This is a 30-year-old female who was brought in by [facility]'s office and was brought in because that she was found wandering on the street and into traffic. When she was questioned by law enforcement she stated that she was born in the 1800s and that this is somewhere in the 1800s and the president is Mihai Aguilera. When they looked at her identification she is about 20 miles away from home. Because of these and her mental status she was brought to the emergency department to be evaluated. When I spoke to her she was not making any sense, she was unable to answer any of my questions appropriately as her answers were no related to my questions. She is quite unkempt. complaint: altered mental status Treatments prior to arrival: placed on mental health hold. She was admitted to the neuropsychiatric unit for definitive treatment of those issues. aJneen presents today reporting that she has been hospitalized psychiatrically once before which was here last month. An excerpt of that note is included below for context given that she denies substantive changes. She reports that she has had outpatient services prior but was unable to clarify where that was. She identifies that she was prescribed medication here and reports that she was taking it but it is unclear if that is accurate. She is a fairly poor historian. When she presented yesterday she was seen walking the hallways with outward signs of disorganization and psychosis. Today she seems to be crashing a bit and having more psychomotor retardation and then the psychomotor agitation seen yesterday. She reports smoking about a half a pack of cigarettes a day, denies alcohol marijuana or any other illicit drugs except methamphetamine. Her UDS however is positive for methamphetamine and cannabis. She can give very little information as to the nidus of her presentation reporting only that the manager of marketing brought her in and when asked with her specific concerns were she reported she did not know. She does report having a past rehab stint but denies having a DUI. We discussed the risk benefits and alternatives of medications to help with her thought disorder and she understood and agreed to proceed as is documented in this note. She did report the Klonopin was an effective medication for her in the past. We discussed the fact that that would be an unlikely medication given concerns for her addiction. Psychiatric history: As above. Substance abuse history: As above. Family history: She denies mental health or addiction issues or suicide attempts or completions in her family essentially saying I do not think so. . Developmental history: She denied any knowledge of issues during her , delivery or her mother's , she denies any issues with learning to walk or talk or meeting her developmental milestones, she reports that she did not need speech therapy, learning support, emotional support or special education classes while in school. Psychosocial history: She reports that her parents were not really together when she was born. She endorses being the only product of that union. She reports she has half siblings to her mother but denies her father having any children other than her. She reports her childhood was decent and denied emotional, physical or sexual abuse. She reports she graduated from high school and that she is a heterosexual. She denies ever being , reports she has 5 children ages 2- 11 4 boys and 1 girl. She is never been in the and she endorses being a Denominational. She reports she did work 1 time 3 months at [employer]. And endorses being homeless. Legal history: She endorses she has been in [facility] approximately 4 times the longest. Being 56 days. Medical history: Please see ED note for full details. Per her 10/24/2020 [facility] inpatient psychiatric evaluation: History of Present Illness Janeen Milan is a 30 year old female with an unclear past psychiatric history presented to the emergency department by police after being found acting bizarrely on the road side with a fishing pole. Patient has a history of substance abuse with crank with reported last use a couple weeks ago but appears to have some sort of motor and vocal tic which is unclear if it is related to substance abuse versus baseline. Patient is somewhat confused but states that she is from a ways away near [place] and states that she has 2 previous psychiatric admissions for unclear reasons and states that she was taking Depakote, doxepin and risperidone which she reports was prescribed by her primary care but had stopped taking these medications several days ago. Patient denies any past or recent manic or hypomanic episodes. She denies any past or recent visual hallucinations but reports having intermittent auditory hallucinations if it is really quiet and I am able to focus on my thoughts. She denies any paranoia and denies any other delusions. Patient states that in the past she has been diagnosed as being depressed but denies any current depressive symptoms. She does report intermittent anxiety symptoms. Patient states that she lives on her own near [place] and states that she has 5 children but only has 4 them but then subsequently states that the children live with their fathers. Meds NPU Home Medications Medication Instructions Recorded Confirmed Last Taken Type olanzapine 5 mg PO BEDTIME #30 tab 10/29/20 12/07/20 12/06/20 Rx Allergies Allergy/AdvReac Type Severity Reaction Status Date / Time No Known Allergies Allergy Verified 12/07/20 11:34 Mental Status Exam MSE Comments: This is a overweight white female in hospital scrubs with limited grooming and eye contact. No abnormal movements except for psychomotor retardation. Semicooperative with exam in mild distress. Speech was decreased rate and volume. Mood described as okay, affect subdued. Thought process more organized, thought content: Patient denied suicidal or homicidal ideation, she endorsed paranoia and seemed guarded, she denied auditory or visual hallucinations but has appeared to be attending to internal stimuli at times. Attention and concentration were limited and memory was mostly reliable but limited but none were formally tested. She is alert and oriented x3. Insight and judgment are impaired, impulse control is impaired. Vitals/I&O/Wt Last Vital Signs Temp 97.7 F 12/08/20 06:00 Pulse 100 12/08/20 06:00 Resp 18 12/08/20 06:00 BP 71/46 12/08/20 06:00 Pulse Ox 97 12/08/20 06:00 Weight last 48 hrs Weight 86.183 kg Data NPU : 12/07/20 12:40 12/07/20 12:40 A&P Assessment and plan (1) Drug-induced psychotic disorder: Status: Acute Qualifiers: Complication of substance-induced condition: with unspecified complication Qualified Code(s): F19.959 - Other psychoactive substance use, unspecified with psychoactive substance-induced psychotic disorder, unspecified (2) Methamphetamine use: Status: Acute Additional A&P Information This is a 30-year-old white female with a long history of addiction and a fairly limited history of mental health treatment who presents positive for amphetamines and cannabis with clear psychosis open to medication at this time. 1. Continue current medications. Will start Abilify 10 mg p.o. every morning. 2. Continue every 15 minute checks for safety. 3. Encourage individual, group and milieu therapy. 4. Encourage sober living treatment after discharge at the highest level of care to which she is willing to commit. Involuntary Hold Information 96 Hour Hold: 96 Hour Involuntary Admission: Yes Attestations NPU Medical Necessity Statement*: Inpatient hospitalization is medically necessary and the clinically appropriate intervention at this time. We will monitor medications and make changes as indicated. She will be in the hospital for over 2 midnights. Likely length of stay 3 to 5 days. Patient is on a 96-hour hold and we will evaluate for appropriateness for discharge. Coding Level of Care Code Acute Radial Drill Operator for Stephen Smith Diagnoses Drug-induced psychotic disorder F19.959 Complication of substance-induced condition: with unspecified complication Methamphetamine use F15.10
[2020-12-08] MEDS: ARIPiprazole 10 mg Tablet PO (13:29)
[2020-12-08 13:56] VITALS: BP 79/44; PULSE 59; RESP 16; TEMP 36.3; O2SAT 99
[2020-12-08] MEDS: OLANZapine 5 mg ODT PO (15:20)
--- NOTE | 2020-12-08 15:20 | PC.NURSE ---
PRN ZYPREXA ZYDIS 5 MG GIVEN PO PER PT C/O STATED ANXIETY/AGITATION. PT PACING UNIT, RAPID PRESSURED SPEECH NOTED. WILL CONT TO MONITOR
[2020-12-08 22:00] VITALS: BP 92/61; PULSE 95; RESP 18; O2SAT 98
[2020-12-08] MEDS: OLANZapine 5 mg TABLET PO (22:08)
[2020-12-09 06:00] VITALS: RESP 17; BMI 30.7
--- NOTE | 2020-12-09 06:41 | PC.NURSE ---
Patient refused vitals
[2020-12-09] MEDS: ARIPiprazole 10 mg Tablet PO (09:11)
--- NOTE | 2020-12-09 13:34 | PM.NPN ---
Subjective NPU Subjective: Interval history: Janeen presents today endorsing feeling better. She does report feeling tired and worn out and was struggling to keep her eyes open and engaged in the conversation. She reports however that she is feeling like the medication is helping and she is feeling less paranoid and not hearing voices anymore. She feels like she needs more sleep and staying on the medication and she hopes to be able to leave soon. She agreed to talk more about addiction and recovery tomorrow. Mental Status Exam MSE Comments: This is a overweight white female in hospital scrubs with limited grooming and eye contact. No abnormal movements except for psychomotor retardation. Semicooperative with exam in mild distress. Speech was decreased rate and volume. Mood described as a little better, affect subdued. Thought process more organized, thought content: Patient denied suicidal or homicidal ideation, she endorsed paranoia and seemed guarded, but with some improvement she denied auditory or visual hallucinations. Attention and concentration were limited, but improving and memory was mostly reliable but limited but none were formally tested. She is alert and oriented x3. Insight and judgment are impaired, impulse control is impaired. Vitals/I&O/Wt Last Vital Signs Temp 97.4 F L 12/08/20 13:56 Pulse 95 12/08/20 22:00 Resp 17 12/09/20 06:00 BP 92/61 12/08/20 22:00 Pulse Ox 98 12/08/20 22:00 Weight last 48 hrs Weight 86.183 kg Data NPU : 12/07/20 12:40 12/07/20 12:40 A&P Additional A&P Information (1) Drug-induced psychotic disorder: (2) Methamphetamine use: Additional A&P Information This is a 30-year-old white female with a long history of addiction and a fairly limited history of mental health treatment who presents positive for amphetamines and cannabis with clear psychosis open to medication at this time. 1. Continue current medications. 2. Continue every 15 minute checks for safety. 3. Encourage individual, group and milieu therapy. 4. Encourage sober living treatment after discharge at the highest level of care to which she is willing to commit. Involuntary Hold Information 96 Hour Hold: 96 Hour Involuntary Admission: Yes Attestations NPU Medical Necessity Statement*: Inpatient hospitalization is medically necessary and the clinically appropriate intervention at this time. We will monitor medications and make changes as indicated. Likely length of stay 3 to 5 days. Patient is on a 96-hour hold and we will evaluate for appropriateness for discharge. Coding Level of Care Code Acute Special Education Case Manager for Stephen Smith
[2020-12-09 14:00] VITALS: BP 87/56; PULSE 72; RESP 18; TEMP 36.6; O2SAT 97
[2020-12-09] MEDS: nicotine 21 mg Patch 1 PATCH TRANSDERMA (15:23)
[2020-12-09] MEDS: OLANZapine 5 mg TABLET PO (21:39)
[2020-12-09 21:47] VITALS: BP 85/50; PULSE 78; RESP 15; TEMP 37.1; O2SAT 98
[2020-12-10 06:00] VITALS: BP 124/96; PULSE 73; RESP 16; TEMP 36.7; O2SAT 96
[2020-12-10] MEDS: ARIPiprazole 10 mg Tablet PO (09:29)
[2020-12-10] MEDS: OLANZapine 5 mg ODT PO (13:28)
[2020-12-10 14:00] VITALS: BP 91/59; PULSE 61; RESP 18; TEMP 36.4; O2SAT 95
[2020-12-10] MEDS: nicotine 2 mg Gum BUCCAL (14:02)
--- NOTE | 2020-12-10 18:57 | PM.NPN ---
Subjective NPU Subjective: Interval history: Janeen presents today endorsing no problems with the medication and reporting improvement in her thought disorder likely due to absence of offending drug and Abilify to assist in treating her psychotic symptoms. We discussed working with the treatment team to figure out what her outpatient resources are like and discussed the likelihood for discharge by Thursday. She is on a 96-hour hold ending on the . Mental Status Exam MSE Comments: This is a overweight white female in hospital scrubs with improving grooming and eye contact. With poor dentition no abnormal movements except for resolving mild psychomotor retardation. More cooperative with exam in no acute distress. Speech was decreased rate and volume. Mood described as a little better, affect less subdued. Thought process more organized, thought content: Patient denied suicidal or homicidal ideation, she endorsed paranoia and seemed guarded, but with some improvement she denied auditory or visual hallucinations. Attention and concentration were limited, but improving and memory was mostly reliable but limited but none were formally tested. She is alert and oriented x3. Insight and judgment are limited, impulse control is limited. Vitals/I&O/Wt Last Vital Signs Temp 97.2 F L 12/10/20 21:14 Pulse 61 12/10/20 21:14 Resp 18 12/10/20 21:14 BP 98/62 12/10/20 21:14 Pulse Ox 94 12/10/20 21:14 Weight last 48 hrs Weight 86.183 kg Data NPU : 12/07/20 12:40 12/07/20 12:40 A&P Additional A&P Information (1) Drug-induced psychotic disorder: (2) Methamphetamine use: Additional A&P Information This is a 30-year-old white female with a long history of addiction and a fairly limited history of mental health treatment who presents positive for amphetamines and cannabis with clear psychosis open to medication at this time. 1. Continue current medications. 2. Continue every 15 minute checks for safety. 3. Encourage individual, group and milieu therapy. 4. Encourage sober living treatment after discharge at the highest level of care to which she is willing to commit. Involuntary Hold Information 96 Hour Hold: 96 Hour Involuntary Admission: Yes Attestations NPU Medical Necessity Statement*: Inpatient hospitalization is medically necessary and the clinically appropriate intervention at this time. We will monitor medications and make changes as indicated. Likely length of stay 2-4 days. Patient is on a 96-hour hold and we will evaluate for appropriateness for discharge. Coding Level of Care Code Acute Bolt Machine Operator for Stephen Smith
[2020-12-10 21:14] VITALS: BP 98/62; PULSE 61; RESP 18; TEMP 36.2; O2SAT 94
[2020-12-10] MEDS: OLANZapine 5 mg TABLET PO (21:26)
[2020-12-10] MEDS: trazodone 50 mg Tablet PO (21:28)
[2020-12-10] MEDS: hyDROXYzine 25 mg Capsule 50 MG PO (21:28)
--- NOTE | 2020-12-11 06:01 | PC.NURSE ---
Patient refused vitals.
[2020-12-11] MEDS: ARIPiprazole 10 mg Tablet PO (08:26)
[2020-12-11 14:00] VITALS: BP 111/76; PULSE 96; RESP 16; TEMP 36.3; O2SAT 95
--- NOTE | 2020-12-11 16:51 | P.PN_ITS ---
Subjective NPU Subjective: Interval history: Janeen presents today showing some steady improvement from her presentation. We discussed the impact of addiction on her presentation and how she would avoid a repeat of that situation. She is working with the treatment team on outpatient planning. And seems cognizant of her addiction but somewhat ambivalent about the seriousness. We discussed the p ossibility of discharge in the next 48 hours. Mental Status Exam MSE Comments: This is a overweight white female in hospital scrubs with improving grooming and eye contact. With poor dentition no abnormal movements except for resolving mild psychomotor retardation. More cooperative with exam in no acute distress. Speech was more normal rate and volume. Mood described as a little better, affect less subdued. Thought process more organized, thought content: Patient denied suicidal or homicidal ideation, she endorsed paranoia and seemed guarded, but with some improvement she denied auditory or vi sual hallucinations. Attention and concentration were limited, but improving and memory was mostly reliable but limited but none were formally tested. She is alert and oriented x3. Insight and judgment are limited, but improving, impulse control is limited. Vitals/I&O/Wt Last Vital Signs Temp 97.6 F 12/11/20 22:00 Pulse 56 L 12/11/20 22:00 Resp 16 12/11/20 22:00 BP 97/58 12/11/20 22:00 Pulse Ox 95 12/11/20 22:00 Data NPU : 12/07/20 12:40 12/07/20 12:40 A&P Additional A&P Information (1) Drug-induced psychotic disorder: (2) Methamphetamine use: Additional A&P Information This is a 30-year-old white female with a long history of addiction and a fairly limited history of mental health treatment who presents positive for amphetamines and cannabis with clear psychosis open to medication at this time. 1. Continue current medications. 2. Continue every 15 minute checks for safety. 3. Encourage individual, group and milieu therapy. 4. Encourage sober living treatment after discharge at the highest level of care to which she is willing to commit. Involuntary Hold Information 96 Hour Hold: 96 Hour Involuntary Admission: Yes Attestations NPU Medical Necessity Statement*: Inpatient hospitalization is medically necessary and the clinically appropriate intervention at this time. We will monitor medications and make changes as indicated. Likely length of stay 1-3 days. Coding Level of Care Code Acute Occupational Medicine Physician for Stephen Smiht
[2020-12-11] MEDS: OLANZapine 5 mg TABLET PO (20:26)
--- NOTE | 2020-12-11 20:54 | PC.NURSE ---
scheduled HS med zyprexa 5mg po given.
[2020-12-11 22:00] VITALS: BP 97/58; PULSE 56; RESP 16; TEMP 36.4; O2SAT 95
[2020-12-12 06:00] VITALS: BP 92/60; PULSE 51; RESP 16; TEMP 36.6; O2SAT 96
[2020-12-12] MEDS: ARIPiprazole 10 mg Tablet PO (07:46)
[2020-12-12 12:27] VITALS: BP 92/60; PULSE 51; RESP 16; TEMP 36.6; O2SAT 96
--- NOTE | 2020-12-12 12:40 | P.DS_ITS ---
Diagnoses at Discharge Discharge Diagnosis (1) Drug-induced psychotic disorder: Status: Acute Qualifiers: Complication of substance-induced condition: with unspecified complication Qualified Code(s): F19.959 - Other psychoactive substance use, unspecified with psychoactive substance-induced psychotic disorder, unspecified (2) Methamphetamine use: Status: Acute Reason for Visit Reason for Visit: MHE Brief History: History of Present Illness Janeen Milan is a 30 year old female who presented to the emergency department with the following report: Chief Complaint: Psychiatric Symptoms Stated Complaint: MHE Time Seen by Provider: 12/07/20 11:20 Source: patient and police Mode of arrival: ambulatory Limitations: altered mental status History of Present Illness: HPI Narrative: This is a 30-year-old female who was brought in by [facility]'s office and was brought in because that she was found wandering on the street and into traffic. When she was questioned by law enforcement she stated that she was born in the 1800s and that this is somewhere in the 1800s and the president is Mihai Aguilera. When they looked at her identification she is about 20 miles away from home. Because of these and her mental status she was brought to the emergency department to be evaluated. When I spoke to her she was not making any sense, she was unable to answer any of my questions appropriately as her answers were no related to my questions. She is quite unkempt. MD complaint: altered mental status Treatments prior to arrival: placed on mental health hold. She was admitted to the neuropsychiatric unit for definitive treatment of those issues. Janeen presents today reporting that she has been hospitalized psychiatrically once before which was here last month. An excerpt of that note is included below for context given that she denies substantive changes. She reports that she has had outpatient services prior but was unable to clarify where that was. She identifies that she was prescribed medication here and reports that she was taking it but it is unclear if that is accurate. She is a fairly poor historian. When she presented yesterday she was seen walking the hallways with outward signs of disorganization and psychosis. Today she seems to be crashing a bit and having more psychomotor retardation and then the psychomotor agitation seen yesterday. She reports smoking about a half a pack of cigarettes a day, denies alcohol marijuana or any other illicit drugs except methamphetamine. Her UDS however is positive for methamphetamine and cannabis. She can give very little information as to the nidus of her presentation reporting only that the type soldering machine tender brought her in and when asked with her specific concerns were she reported she did not know. She does report having a past rehab stint but denies having a DUI. We discussed the risk benefits and alternatives of medications to help with her thought disorder and she understood and agreed to proceed as is documented in this note. She did report the Klonopin was an effective medication for her in the past. We discussed the fact that that would be an unlikely medication given concerns for her addiction. Psychiatric history: As above. Substance abuse history: As above. Family history: She denies mental health or addiction issues or suicide attempts or completions in her family essentially saying I do not think so. . Developmental history: She denied any knowledge of issues during her , delivery or her mother's , she denies any issues with learning to walk or talk or meeting her developmental milestones, she reports that she did not need speech therapy, learning support, emotional support or special education classes while in school. Psychosocial history: She reports that her parents were not really together when she was born. She endorses being the only product of that union. She reports she has half siblings to her mother but denies her father having any children other than her. She reports her childhood was decent and denied emotional, physical or sexual abuse. She reports she graduated from high school and that she is a heterosexual. She denies ever being , reports she has 5 children ages 2- 11 4 boys and 1 girl. She is never been in the and she endorses being a Yazdanism. She reports she did work 1 time 3 months at [employer]. And endorses being homeless. Legal history: She endorses she has been in senior care approximately 4 times the longest. Being 56 days. Medical history: Please see ED note for full details. Per her 10/24/2020 [facility] inpatient psychiatric evaluation: History of Present Illness Janeen Milan is a 30 year old female with an unclear past psychiatric history presented to the emergency department by police after being found acting bizarrely on the road side with a fishing pole. Patient has a history of substance abuse with crank with reported last use a couple weeks ago but appears to have some sort of motor and vocal tic which is unclear if it is related to substance abuse versus baseline. Patient is somewhat confused but states that she is from a ways away near [place] and states that she has 2 previous psychiatric admissions for unclear reasons and states that she was taking Depakote, doxepin and risperidone which she reports was prescribed by her primary care but had stopped taking these medications several days ago. Patient denies any past or recent manic or hypomanic episodes. She denies any past or recent visual hallucinations but reports having intermittent auditory hallucinations if it is really quiet and I am able to focus on my thoughts. She denies any paranoia and denies any other delusions. Patient states that in the past she has been diagnosed as being depressed but denies any current depressive symptoms. She does report intermittent anxiety symptoms. Patient states that she lives on her own near [place] and states that she has 5 children but only has 4 them but then subsequently states that the children live with their fathers. Hospital Course Hospital Course On the unit, she slowly acclimated to the individual, group and milieu therapies provided. We restarted home medication and added Abilify 10 mg p.o. every morning. She had a marked response and showed significant improvement. She was documented to any intensive post hospital services for her addiction. But she was able to contract for duration of continuing the Zyprexa as a decision for her and her outpatient team. During the hospitalization, patient had routine laboratory studies which were within normal limits except for few outliers. Additionally there was a general medical evaluation which was also within normal limits and revealed no new acute processes. Discharge Summary: At the time of discharge, lethality was denied and psychosis was resolving. Mood and anxiety were well managed. Patient endorsed a plan to avoid all drugs of abuse and follow-up with the aftercare recommendations of the treatment team. Patient was evaluated and deemed to be absent credible lethality, and had achieved the maximum benefit from an inpatient hospitalization, so was discharged. Involuntary Hold Information 96 Hour Hold: 96 Hour Involuntary Admission: Yes Mental Status Exam MSE Comments: This is a overweight white female in hospital scrubs with adequate grooming and eye contact. With poor dentition no abnormal movements. Cooperative with exam in no acute distress. Speech was more normal rate and volume. Mood described as better, affect less congruent. Thought process more organized, thought content: Patient denied suicidal or homicidal ideation, she endorsed resolving paranoia and seemed less guarded, band she denied auditory or visual hallucinations. Attention and concentration were intact, and memory was mostly reliable but none were formally tested. She is alert and oriented x3. Insight and judgment are improving, impulse control is limited. Discharge Data Vitals: Last Vital Signs Temp 97.8 F 12/12/20 12:27 Pulse 51 L 12/12/20 12:27 Resp 16 12/12/20 12:27 BP 92/60 12/12/20 12:27 Pulse Ox 96 12/12/20 12:27 Discharge Plan Discharge Patient Disposition: Home Condition: Stable Prescriptions: New aripiprazole 10 mg Tablet 10 mg PO DAILY 30 Days Qty: 30 RF: 1 Continued olanzapine 5 mg Tablet 5 mg PO BEDTIME 30 Days Qty: 30 RF: 1 Discharge Orders: Discharge Order (Routine); Ordered 12/12/20 Ordered By: Vinay Stephens Referrals: [facility] [Other] - 12/19/20 2:15 am [facility] [Outside] Discharge Diet: Regular Discharge Activity: Resume usual activity Patient Instructions: Opioid Safety Discharge Attestations NPU Time Spent in Discharge Care*: less than 30 min Specific Discharge Activities: Specific discharge activities: educating patient, discussing with case making machine operator/social workers/dc planners, documenting/other paperwork and evaluating patient/reviewing data Status at Discharge: Cognitive status at discharge: cognitively intact , Behavioral status at discharge: cooperative , Coding Level of Care Code Acute [facility] DC note Diagnoses Drug-induced psychotic disorder F19.959 Complication of substance-induced condition: with unspecified complication Methamphetamine use F15.10
[2020-12-12 12:49] VITALS: BP 92/60; PULSE 51; RESP 16; TEMP 36.6; O2SAT 96
== END 2020-12-12 13:28 | disposition home or self-care (01) | DRG 897 ==
LOC: ER 13:17 → NP 14:39
PROVIDERS: Admitting Provider Psychiatry & Neurology Psychiatry; Emergency Provider Family Medicine; Visit Provider Psychiatry & Neurology Psychiatry
DX: F15.959 Other stimulant use, unspecified with stimulant-induced psychotic disorder, unspecified (principal); F12.959 Cannabis use, unspecified with psychotic disorder, unspecified; F17.210 Nicotine dependence, cigarettes, uncomplicated; Z59.0 Homelessness
CPT/HCPCS: 80053; 80306; 80307; 81001; 81025; 85025; 99285